=== PATIENT | female | born 1995 | race Caucasian/White ===

== ENCOUNTER 2019-09-29 08:42 | Outpatient (REF) | payer OTHER, SELFPAY ==
[2019-09-29 21:32] LABS: ALT 26 U/L (14-59); AST 26 U/L (15-37); Albumin 3.4 g/dL (3.4-5.0); Alkaline Phosphatase 75 U/L (46-116); Anion Gap 12.7 mmol/L (3-11); BUN 10 mg/dL (7-18); Bilirubin, Total 0.2 mg/dL (0.2-1.0); CO2 23.3 mmol/L (21.0-32.0); CREATININE 0.72 mg/dL (0.55-1.02); Calcium 9.5 mg/dL (8.5-10.1); Calculated LDL 56 mg/dL; Chloride 102 mmol/L (98-107); Cholesterol 160 mg/dL (50-200); Glucose 81 mg/dL (70-100); HDL Cholesterol 54 mg/dL (40-60); Potassium 4.1 mmol/L (3.5-5.1); Sodium 138 mmol/L (136-145); TSH (W/Ref FT4) 2.94 uIU/mL (0.36-3.74); Total Protein 7.4 g/dL (6.4-8.2); Triglyceride 251 mg/dL (30-150)
[2019-10-02 06:35] LABS: Vitamin D 25 Total 33.8 ng/ml (30-100)
== END 2019-09-29 09:02 ==
LOC: NCHCN 08:42
PROVIDERS: PCP Family Medicine; Visit Provider Family Medicine
DX: E66.9 Obesity, unspecified (principal)
CPT/HCPCS: 80053; 80061; 82306; 83036; 84443

== ENCOUNTER 2020-02-15 08:54 | Outpatient (REF) | payer OTHER, SELFPAY ==
[2020-02-15 21:07] LABS: Calculated LDL 64 mg/dL (<100); Cholesterol 173 mg/dL (<200); HDL Cholesterol 51 mg/dL (40-60); Hemoglobin A1C 6.1 % (3.8-5.6); Triglyceride 292 mg/dL (<150)
== END 2020-02-15 09:14 ==
LOC: NCHCN 08:54
PROVIDERS: PCP Family Medicine; Visit Provider Family Medicine
DX: R73.03 Prediabetes (principal); E78.1 Pure hyperglyceridemia
CPT/HCPCS: 80061; 83036

== ENCOUNTER 2020-10-08 14:28 | Outpatient (REF) | payer SELFPAY ==
[2020-10-10 18:46] LABS: SARS-CoV-2 RNA Not Detected (NotDetected); SARS-CoV-2 RNA Source Nasal/Nares
== END 2020-10-08 14:48 ==
LOC: NCHCN 14:28
PROVIDERS: PCP Family Medicine; Visit Provider Nurse Practitioner Family
DX: Z20.828 Contact with and (suspected) exposure to other viral communicable diseases (principal)
CPT/HCPCS: U0003

== ENCOUNTER 2020-11-05 11:18 | Outpatient (REF) | payer SELFPAY ==
[2020-11-08 15:58] LABS: COVID-19 RT-PCR Result NEGATIVE (Negative)
== END 2020-11-05 11:38 ==
LOC: NCHCN 11:18
PROVIDERS: PCP Family Medicine; Visit Provider Nurse Practitioner Family
DX: Z11.59 Encounter for screening for other viral diseases (principal)
CPT/HCPCS: U0003

== ENCOUNTER 2021-12-10 16:33 | Outpatient (REF) | payer OTHER, SELFPAY ==
[2021-12-12 09:23] LABS: COVID-19 RT-PCR UVMMC Result Positive (Negative)
== END 2021-12-10 16:34 | disposition home or self-care (01) ==
LOC: NCHCN 16:33
PROVIDERS: PCP Family Medicine; Visit Provider Nurse Practitioner Family
DX: Z20.822 Contact with and (suspected) exposure to COVID-19 (principal)
CPT/HCPCS: U0003

== ENCOUNTER 2022-02-10 18:46 | Outpatient (REF) | payer OTHER, SELFPAY ==
[2022-02-10 15:12] LABS: Hemoglobin A1C 5.7 % (<5.7)
[2022-02-10 15:28] LABS: ALT 19 U/L (14-59); AST 12 U/L (15-37); Albumin 3.8 g/dL (3.4-5.0); Alkaline Phosphatase 86 U/L (46-116); Anion Gap 10.5 mmol/L (3-11); BUN 14 mg/dL (7-18); Bilirubin, Total 0.2 mg/dL (0.2-1.0); CO2 24.5 mmol/L (21.0-32.0); Calcium 9.4 mg/dL (8.5-10.1); Calculated LDL 89 mg/dL (<100); Chloride 104 mmol/L (98-107); Cholesterol 169 mg/dL (<200); Glucose 87 mg/dL (74-106); HDL Cholesterol 43 mg/dL (40-60); Potassium 3.9 mmol/L (3.5-5.1); Sodium 139 mmol/L (136-145); TSH 2.93 uIU/mL (0.36-3.74); Total Protein 7.5 g/dL (6.4-8.2); Triglyceride 189 mg/dL (<150)
[2022-02-12 00:56] LABS: Vitamin D 25 Total 31.6 ng/mL (30-100)
== END 2022-02-10 18:47 | disposition home or self-care (01) ==
LOC: NCHCN 18:46
PROVIDERS: PCP Family Medicine; Visit Provider Family Medicine
DX: E78.1 Pure hyperglyceridemia (principal); Z00.00 Encounter for general adult medical examination without abnormal findings; E66.9 Obesity, unspecified; R73.03 Prediabetes; F33.42 Major depressive disorder, recurrent, in full remission
CPT/HCPCS: 80053; 80061; 82306; 83036; 84443

== ENCOUNTER 2022-08-27 19:38 | Outpatient (REF) | payer OTHER, SELFPAY ==
[2022-08-27 15:18] LABS: HCG Quant, Pregnancy 116 mIU/mL (1-3)
== END 2022-08-27 19:39 | disposition home or self-care (01) ==
LOC: NCHCN 19:38
PROVIDERS: PCP Family Medicine; Visit Provider Nurse Practitioner Family
DX: O26.899 Other specified pregnancy related conditions, unspecified trimester (principal); R10.32 Left lower quadrant pain
CPT/HCPCS: 84702

== ENCOUNTER 2024-06-01 13:00 | Outpatient (REF) | payer BC, SELFPAY ==
[2024-06-01 15:54] LABS: ALT 30 U/L (14-59); AST 28 U/L (15-37); Alkaline Phosphatase 98 U/L (46-116); Anion Gap 12.7 mmol/L (3-11); BUN 7 mg/dL (7-18); Bilirubin, Total 0.35 mg/dL (0.2-1.0); CO2 22.3 mmol/L (21.0-32.0); CREATININE 0.7 mg/dL (0.55-1.02); Calcium 9.3 mg/dL (8.5-10.1); Chloride 103 mmol/L (98-107); Estimated GFR 119.99 (mL/min/1.73m2); Glucose 80 mg/dL (74-106); Lipase 33 U/L (16-77); Sodium 138 mmol/L (136-145); Total Protein 8.2 g/dL (6.4-8.2)
== END 2024-06-01 13:01 | disposition home or self-care (01) ==
LOC: LBN 13:00
PROVIDERS: PCP Family Medicine; Visit Provider Physician Assistant Medical
DX: R19.7 Diarrhea, unspecified (principal)
CPT/HCPCS: 80053; 83690; 85025

== ENCOUNTER 2024-06-02 15:32 | Outpatient (REF) | payer BC, SELFPAY ==
[2024-06-02 12:35] LABS: C Diff PCR Negative (Negative)
[2024-06-03 00:33] LABS: Campylobacter PCR Negative (Negative); Salmonella PCR Negative (Negative); Shiga Toxin PCR Negative (Negative); Shigella/Enteroinvasive Ecoli Negative (Negative)
== END 2024-06-02 15:33 | disposition home or self-care (01) ==
LOC: LBN 15:32
PROVIDERS: PCP Family Medicine; Visit Provider Physician Assistant Medical
DX: R19.7 Diarrhea, unspecified (principal)
CPT/HCPCS: 87329; 87493; 87505; 87177

== ENCOUNTER 2024-11-10 11:05 | Outpatient (REF) | payer BC, SELFPAY ==
--- NOTE | 2024-11-10 10:15 | SKI_PTH ---
PATIENT: Magaly Herndon LOC: [facility] U#:[id number] AGE/SX: 29/F ROOM: RE11/10/[address]: Marlene Kam : 1995 BED: DIS: 11/10/2024 SPEC #: [id number] RECD: 11/10/24 16:01 STATUS: SANDRA REAnnette #: [id number] JOSE: 11/10/24 10:[address]: Marlene Kam DEPT: Surgical Specimen RECD BY: Sophie Butler ENTERED: 11/10/24 16:01 SP TYPE: IMELDA ELIAS DR: Romina Kate Tissues: 1 - SKIN BIOPSY(SHAVE/PUNCH) Procedures: SKIN LEVEL 4 Comments: [id number]
== END 2024-11-10 11:06 | disposition home or self-care (01) ==
LOC: NCHCN 11:05
PROVIDERS: PCP Family Medicine; Visit Provider Family Medicine
DX: L28.2 Other prurigo (principal)
CPT/HCPCS: 88305

== ENCOUNTER 2025-08-28 14:59 | Emergency (ER) | payer BC, SELFPAY ==
[2025-08-28 15:01] VITALS: BP 131/88; PULSE 130; RESP 18; TEMP 38.1; O2SAT 97
--- NOTE | 2025-08-28 16:15 | DI.CT_ITS ---
Exam(s) CT ABDOMEN PELVIS W EXAM: CT ABDOMEN PELVIS W CLINICAL HISTORY: RUQ tenderness. TECHNIQUE: Imaging Protocol: Axial computed tomography images with coronal and sagittal reformatted images were created and reviewed CONTRAST MATERIAL: Intravenous: Omnipaque 350 Contrast volume:100 ml Oral: no COMPARISON: No exams were available for comparison FINDINGS: ABDOMEN and PELVIS: Lung Bases: No acute findings. Liver: Normal density. No suspicious mass. Gallbladder and biliary tract: No radiodense calculus. No wall thickening or pericholecystic fluid. No biliary dilation. Pancreas: Normal density. No abnormal calcifications or inflammatory process. No evidence of mass. Spleen: Normal. Kidneys: Normal size, contour and axis. No radiodense stones. No obstructive uropathy. No suspicious masses seen. Adrenal glands: No masses seen. Vasculature: Abdominal aorta non-dilated. Soft tissues: Unremarkable. Bladder: Nearly empty no gross wall thickening. No calculi. Bowel: No obstruction. No bowel wall thickening. Appendix normal. Normal quantity of stool. Peritoneal cavity: No ascites. No focal collection. No mesenteric inflammatory response. No free air. Bones: Mild disc space narrowing and endplate osteophytes at L5-S1. Remainder of the spine is unremarkable. Reproductive organs: Unremarkable. Lymph nodes: No pathologically enlarged lymph nodes. IMPRESSION:: No acute abnormality in the abdomen or pelvis. RADIATION DOSE DELIVERED: Total DLP DATA REPOSITORY: All CT scans at this facility are submitted to the National Radiology Data Registry (NRDR) Dose Index Registry (DIR) with the [employer] ([employer]). RADIATION OPTIMIZATION: All CT scans at this facility use at least one of these dose optimization techniques: automated exposure control; mA and/or kV adjustment per patient size (includes targeted exams where dose is matched to clinical indication); or iterative reconstruction.
[2025-08-28 16:45] LABS: Glucose Negative (Negative)
[2025-08-28 16:54] LABS: C & S Indicated? No; RBC 0-2 HPF (0-2); WBC 0-2 HPF (0-5)
[2025-08-28 16:55] LABS: Abs Immature Grans 0.05 10^3/uL (0.0-0.06); HCT 42.4 % (36.0-46.0); HGB 13.5 g/dL (11.2-15.7); Immature Grans % 0.5 %; MCH 26.3 pg (27.0-33.0); MCHC 31.8 % (32.0-36.0); MCV 83 fL (80-95); MPV 9.7 fL (8.0-11.0); Platelet Count 307 10^3/uL (130-400); RBC 5.13 10^6/uL (3.93-5.22); RDW 13.8 % (11.7-14.6); RDW-SD 41.2 fL; WBC 10.79 10^3/uL (4.4-10.8)
[2025-08-28 17:25] LABS: ALT 21 U/L (14-59); AST 14 U/L (15-37); Albumin 4.2 g/dL (3.4-5.0); Alkaline Phosphatase 95 U/L (46-116); Anion Gap 12.8 mmol/L (3-11); BUN 13 mg/dL (7-18); Bilirubin, Total 0.6 mg/dL (0.2-1.0); CO2 23.2 mmol/L (21.0-32.0); Calcium 9.1 mg/dL (8.5-10.1); Chloride 101 mmol/L (98-107); Estimated GFR 87.65 (mL/min/1.73m2); Glucose 107 mg/dL (74-106); Potassium 3.7 mmol/L (3.5-5.1); Sodium 137 mmol/L (136-145); Total Protein 8.7 g/dL (6.4-8.2); Troponin I < 4 ng/L (<or=51)
[2025-08-28] MEDS: ACETAMINOPHEN 1,000 MG/100 ML BAG 400 MG IVPB (17:25)
[2025-08-28] MEDS: Ondansetron 4 MG/2 ML VIAL IVP (17:25)
[2025-08-28] MEDS: Normal Saline 1,000 ML 1000 ML IV (17:25)
[2025-08-28 17:32] LABS: Lipase 32 U/L (<78)
[2025-08-28] MEDS: Normal Saline - Diluent 50 ML VIAL IJ (17:47)
[2025-08-28] MEDS: Normal Saline Flush 10 ML SYR IVP (17:47)
[2025-08-28] MEDS: Omnipaque 350 MG/ML 100 ML BTL IJ (17:48)
--- NOTE | 2025-08-28 18:00 | DI.RAD_ITS ---
Exam(s) XR CHEST 2V PA LATERAL EXAM: XR CHEST 2V PA LATERAL CLINICAL HISTORY: epigastric pain. TECHNIQUE: 2D digital imaging was performed. COMPARISON: No exams were available for comparison FINDINGS: 2 views: Heart size is normal. The mediastinum is not widened. Lungs are clear. No infiltrates nor pleural effusions. IMPRESSION: No acute pulmonary findings. DATA REPOSITORY: RADIATION DOSE DELIVERED:
--- NOTE | 2025-08-28 18:11 | ED.GENADUL_ITS ---
Discharge Plan Disposition Patient Disposition: Home Condition: Stable Discharge Details Clinical Impression: Abdominal pain of unknown cause Primary Care Provider: Romina Kate ED Provider: Hugo Lay Home Meds and New Rx's Prescriptions: Continued bupropion HCl 300 mg tablet extended release 24 hr PO Patient Comments: TAKE 1 TABLET BY MOUTH EVERY DAY Zepbound 5 mg/0.5 mL pen injector SUBCUT Patient Comments: ADMINISTER 5 MG UNDER THE SKIN EVERY WEEK Discharge Instructions Instructions: Abdominal Pain, Adult ED Additional Instructions: You were seen in the emergency department for abdominal pain of unknown cause, he had some nausea and vomiting onset at 330 this morning, your laboratory workup shows no acute concerns, no signs of sepsis at this time though it is early in the course of your illness, please have a low threshold to return, the x-ray of your chest shows no acute pathology and the x-ray of your abdomen shows no acute pathology, there is no evidence of any gallbladder infection or pancreatitis or emergent bowel pathology. You may have possible peptic ulcers or duodenal ulcers, please trial [id number] famotidine/Pepcid AC twice per day, talk to your primary care provider about getting a referral to general surgery for upper endoscopy, please return for any severe acute worsening like intractable nausea or vomiting, significant worsening abdominal pain with persistent fever despite Tylenol and ibuprofen treatment. Referrals: Romina Kate [Primary Care Provider, Medicine] Discharge Data Discharge Date/Time-TO BE ENTERED AT DEPARTURE: 08/28/25 20:56 HPI General Date/Time Provider Initiated Documentation: 08/28/25 15:37 . HPI Narrative: 30 year-old female presents to ED today by POV/ambulating with her spouse with a chief complaint of abdominal pain, sudden onset at 330 this morning with some nausea/vomiting today. Quality described as severe pain in RUQ radiating to R flank, no radiation to black/bloody stools, coffee-ground emesis, shortness of breath, chest pain, endorses fever. Severity is described as severe. Palliating factors include took some Tylenol earlier today. Provoking factors include nothing specific. Events leading up to the incident/Associated Symptoms: Patient denies history of abdominal surgical procedures. Patient not anticoagulated. Related Data Home Medications ?Medication ?Instructions ?Recorded ?Confirmed bupropion HCl 300 mg 24 hr tablet, mg PO 08/28/25 extended release tirzepatide (weight loss) 5 mg/0.5 mg subcut 08/28/25 mL subcutaneous pen injector (Digital Perceptionpbound) Allergies Allergy/AdvReac Type Severity Reaction Status Date / Time amoxicillin Allergy Intermediate Anaphylaxis Verified 08/28/25 15:06 minocycline Allergy Intermediate Anaphylaxis Verified 08/28/25 15:06 General Stated Complaint: Abd Prob CORNELIO: 3 Review of Systems All systems reviewed & are unremarkable except as noted in HPI and below Exam Narrative Exam Narrative: GENERAL APPEARANCE: Well-nourished, febrile, awake and alert, atraumatic, mild acute distress. SKIN: Warm, pink, dry, intact, without rashes/lesions/ulcerations. HEAD: Normocephalic, atraumatic, normal hair distribution for gender/age. EYES: Normal conjunctiva, no exudates on lids/lashes. ENT: Nares patent, no circumoral cyanosis, no facial swelling NECK: Supple, trachea midline, painless cervical ROM. LUNGS/CHEST: Lungs CTA bilaterally- no rhonchi/rales/wheezes diffusely, non- labored respirations, normal A/P diameter, symmetrical expansion, no chest wall deformity HEART (CV/PV): Regular rate and rhythm without murmur, no peripheral edema, no JVD. ABDOMEN: Soft, non-distended, no guarding, RUQ tenderness without Kim's sign, R sided CVA tenderness to percussion, less severe epigastric tenderness. MSK: Normal ROM, no swelling/deformity to bilateral UEs or LEs, moving all extremities without weakness, no cyanosis, spine midline without tenderness, normal curvature. NEURO: Mental Status AAOx4 - alert to person, place, time, events No facial droop, no forehead involvement. Motor: No focal weakness - strength 5/5 in bilateral UEs and LEs, proximal and distal, symmetric. Sensory: sensation intact to light touch globally. Gait normal: patient ambulated without ataxia into ED room. PSYCH: euthymic, cooperative, pleasant, appropriate speech Course Vital Signs Vital signs: Vital Signs Temperature 38.1 C H 08/28/25 15:01 Pulse 130 H 08/28/25 15:01 Respiratory Rate 18 08/28/25 15:01 Blood Pressure 131/88 08/28/25 15:01 Pulse Oximetry 97 08/28/25 15:01 Temperature 38.1 C H 08/28/25 15:01 Temperature Source Tympanic 08/28/25 15:01 Pulse 130 H 08/28/25 15:01 Respiratory Rate 18 08/28/25 15:01 Blood Pressure 131/88 08/28/25 15:01 Pulse Oximetry 97 08/28/25 15:01 Oxygen Delivery Method Room Air 08/28/25 15:01 Oxygen Flow Rate 0 08/28/25 15:01 Pain Level 8 08/28/25 15:01 Lab/Test Results Lab/Test Results: 08/28/25 16:47 Blood Blood Culture - Pending 08/28/25 16:40 Blood Blood Culture - Pending Laboratory Tests Range/Units 08/28/25 08/28/25 16:35 16:40 WBC (4.4-10.8) 10^3/uL 10.79 RBC (3.93-5.22) 10^6/uL 5.13 Hgb (11.2-15.7) g/dL 13.5 Hct (36.0-46.0) % 42.4 MCV (80-95) fL 83 MCH (27.0-33.0) pg 26.3 L MCHC (32.0-36.0) % 31.8 L RDW (11.7-14.6) % 13.8 Plt Count (130-400) 10^3/uL 307 MPV (8.0-11.0) fL 9.7 Immature Gran % % 0.5 Neutrophils % % 90.4 Lymphocytes % % 5.6 Monocytes % % 2.5 Eosinophils % % 0.8 Basophils % % 0.2 Nucleated RBC % (0.0-0.3) % 0.0 Absolute Neutrophils (1.2-6.7) 10^3/uL 9.76 H Absolute Lymphocytes (1.2-3.4) 10^3/uL 0.60 L Absolute Monocytes (0.1-0.8) 10^3/uL 0.27 Absolute Eosinophils (0.0-0.7) 10^3/uL 0.09 Absolute Basophils (0.0-0.2) 10^3/uL 0.02 VBG Lactate (<or=2.0) mmol/L 1.5 Sodium (136-145) mmol/L 137 Potassium (3.5-5.1) mmol/L 3.7 Chloride (98-107) mmol/L 101 Carbon Dioxide (21.0-32.0) mmol/L 23.2 Anion Gap (3-11) mmol/L 12.8 H BUN (7-18) mg/dL 13 Creatinine (0.55-1.02) mg/dL 0.9 Est GFR (CKD-EPI 2020) (mL/min/1.73m2) 87.65 Glucose (74-106) mg/dL 107 H Calcium (8.5-10.1) mg/dL 9.1 Total Bilirubin (0.2-1.0) mg/dL 0.6 AST (15-37) U/L 14 L ALT (14-59) U/L 21 Alkaline Phosphatase (46-116) U/L 95 Troponin I (<or=51) ng/L < 4 Total Protein (6.4-8.2) g/dL 8.7 H Albumin (3.4-5.0) g/dL 4.2 Lipase (<78) U/L 32 Urine Color (Yellow) Yellow Urine Clarity (Clear) Clear Urine pH (5-8) 6.5 Ur Specific [place] (1.005-1.025) 1.025 Urine Protein (Neg-Trace) mg/dL 30 H Urine Ketones (Negative) mg/dL 15 H Urine Blood (Negative) Negative Urine Nitrite (Negative) Negative Urine Bilirubin (Negative) Small H Urine Urobilinogen (Up to 0.2) mg/dL 0.2 Ur Leukocyte Esterase (Negative) Negative Urine RBC (0-2) HPF 0-2 Urine WBC (0-5) HPF 0-2 Ur Epithelial Cells (Negative) HPF Few Urine Crystals (Negative) HPF Negative Urine Bacteria (Negative) HPF Moderate Urine Casts (Negative) LPF 0-2 Hyaline Urine Mucus (Negative) Moderate Ur Culture Indicated? No Urine Glucose (Negative) mg/dL Negative Medical Decision Making This dictation utilizes [id number] dictation software and may contain unedited grammatical errors. 30 year-old female presents to ED today by POV/ambulating with her spouse with a chief complaint of abdominal pain, sudden onset at 330 this morning with some nausea/vomiting today. Quality described as severe pain in RUQ radiating to R flank, no radiation to black/bloody stools, coffee-ground emesis, shortness of breath, chest pain, endorses fever. Severity is described as severe. Palliating factors include took some Tylenol earlier today. Provoking factors include nothing specific. Events leading up to the incident/Associated Symptoms: Patient denies history of abdominal surgical procedures. Patients' medical history: Noncontributory. Family and social history: Eats healthy diet, denies excessive alcohol use. Pertinent exam findings / vital signs include right upper quadrant tenderness without overt Kim sign, some epigastric tenderness, right CVA tenderness to percussion, febrile on arrival with tachycardia that quickly normalized. Differential / pathologies of concern include gastroenteritis, gastritis, biliary colic, renal colic, SBO less likely, pancreatitis. Diagnostic studies of: -CBC, CMP, lactate, troponin, lipase, UA, blood cultures, x-ray chest, CT ABD/pelvis with contrast. - CBC shows no leukocytosis, no anemia - Lactate negative - CMP without actionable abnormality - Troponin negative - Lipase negative - UA shows no signs of infection - Blood cultures pending - CT ABD/pelvis shows no acute pathology - X-ray chest shows no acute pathology Interventions of: -1 g IV Tylenol, 4 mg IVP Zofran, 1 L IVF NS. ED Course/Assessment/Plan: 30-year-old female has a negative workup for her abdominal pain but she was febrile when she arrived, I counseled her on possible gastritis and to take famotidine [id number] twice a day, regular dose of Tylenol and ibuprofen as needed, watchful waiting as she may be early in the course of her illness as it came on suddenly at 330 this morning and may need to be reevaluated, has no surgical abdominal history no evidence of obstruction and no evidence of sepsis on workup, she may have a viral gastroenteritis. Findings not consistent with SBO, sepsis, biliary obstruction, kidney stone, UTI or pyelonephritis, pancreatitis, atypical ACS. Disposition of Abdominal Pain of Unknown Cause. Patient verbalized understanding of the plan and return to ED criteria and engaged in shared decision making. Medical Records Medical records reviewed: Yes I reviewed the patient's medical records. Imaging Data Radiologic Study: Attestation: I personally reviewed and interpreted this imaging study as follows: Imaging: X-Ray Radiologist's impression: Exam: XR Chest Exam date and time: 08/28/2025 6:59 PM Age: 30 years old Clinical indication: Pain; Other: Epigastric TECHNIQUE: Imaging protocol: Radiologic exam of the chest. Views: 2 views. COMPARISON: CT ABDOMEN PELVIS W 08/28/2025 5:47 PM FINDINGS: Lungs: Unremarkable. No consolidation. Pleural spaces: Unremarkable. No pleural effusion. No pneumothorax. Heart/Mediastinum: Unremarkable. No cardiomegaly. Bones/joints: Unremarkable. IMPRESSION: No acute findings. Dictated and Authenticated by: Logan Valencai MD. EXAM: XR CHEST 2V PA LATERAL CLINICAL HISTORY: epigastric pain. TECHNIQUE: 2D digital imaging was performed. COMPARISON: No exams were available for comparison FINDINGS: 2 views: Heart size is normal. The mediastinum is not widened. Lungs are clear. No infiltrates nor pleural effusions. IMPRESSION: No acute pulmonary findings. Radiologic Study #2: Attestation: I personally reviewed and interpreted this imaging study as follows: Imaging: CT Scan Radiologist's impression: EXAM: CT ABDOMEN PELVIS W CLINICAL HISTORY: RUQ tenderness. TECHNIQUE: Imaging Protocol: Axial computed tomography images with coronal and sagittal reformatted images were created and reviewed CONTRAST MATERIAL: Intravenous: Omnipaque 350 Contrast volume:100 ml Oral: no COMPARISON: No exams were available for comparison FINDINGS: ABDOMEN and PELVIS: Lung Bases: No acute findings. Liver: Normal density. No suspicious mass. Gallbladder and biliary tract: No radiodense calculus. No wall thickening or pericholecystic fluid. No biliary dilation. Pancreas: Normal density. No abnormal calcifications or inflammatory process. No evidence of mass. Spleen: Normal. Kidneys: Normal size, contour and axis. No radiodense stones. No obstructive uropathy. No suspicious masses seen. Adrenal glands: No masses seen. Vasculature: Abdominal aorta non-dilated. Soft tissues: Unremarkable. Bladder: Nearly empty no gross wall thickening. No calculi. Bowel: No obstruction. No bowel wall thickening. Appendix normal. Normal anneliese tity of stool. Peritoneal cavity: No ascites. No focal collection. No mesenteric inflammatory response. No free air. Bones: Mild disc space narrowing and endplate osteophytes at L5-S1. Remainder of the spine is unremarkable. Reproductive organs: Unremarkable. Lymph nodes: No pathologically enlarged lymph nodes. IMPRESSION:: No acute abnormality in the abdomen or pelvis. Lab Data Lab results reviewed: Yes I reviewed the patient's lab results. Labs: 08/28/25 16:47 Blood Blood Culture - Pending 08/28/25 16:40 Blood Blood Culture - Pending Laboratory Tests Range/Units 08/28/25 08/28/25 16:35 16:40 WBC (4.4-10.8) 10^3/uL 10.79 RBC (3.93-5.22) 10^6/uL 5.13 Hgb (11.2-15.7) g/dL 13.5 Hct (36.0-46.0) % 42.4 MCV (80-95) fL 83 MCH (27.0-33.0) pg 26.3 L MCHC (32.0-36.0) % 31.8 L RDW (11.7-14.6) % 13.8 Plt Count (130-400) 10^3/uL 307 MPV (8.0-11.0) fL 9.7 Immature Gran % % 0.5 Neutrophils % % 90.4 Lymphocytes % % 5.6 Monocytes % % 2.5 Eosinophils % % 0.8 Basophils % % 0.2 Nucleated RBC % (0.0-0.3) % 0.0 Absolute Neutrophils (1.2-6.7) 10^3/uL 9.76 H Absolute Lymphocytes (1.2-3.4) 10^3/uL 0.60 L Absolute Monocytes (0.1-0.8) 10^3/uL 0.27 Absolute Eosinophils (0.0-0.7) 10^3/uL 0.09 Absolute Basophils (0.0-0.2) 10^3/uL 0.02 VBG Lactate (<or=2.0) mmol/L 1.5 Sodium (136-145) mmol/L 137 Potassium (3.5-5.1) mmol/L 3.7 Chloride (98-107) mmol/L 101 Carbon Dioxide (21.0-32.0) mmol/L 23.2 Anion Gap (3-11) mmol/L 12.8 H BUN (7-18) mg/dL 13 Creatinine (0.55-1.02) mg/dL 0.9 Est GFR (CKD-EPI 2020) (mL/min/1.73m2) 87.65 Glucose (74-106) mg/dL 107 H Calcium (8.5-10.1) mg/dL 9.1 Total Bilirubin (0.2-1.0) mg/dL 0.6 AST (15-37) U/L 14 L ALT (14-59) U/L 21 Alkaline Phosphatase (46-116) U/L 95 Troponin I (<or=51) ng/L < 4 Total Protein (6.4-8.2) g/dL 8.7 H Albumin (3.4-5.0) g/dL 4.2 Lipase (<78) U/L 32 Urine Color (Yellow) Yellow Urine Clarity (Clear) Clear Urine pH (5-8) 6.5 Ur Specific [place] (1.005-1.025) 1.025 Urine Protein (Neg-Trace) mg/dL 30 H Urine Ketones (Negative) mg/dL 15 H Urine Blood (Negative) Negative Urine Nitrite (Negative) Negative Urine Bilirubin (Negative) Small H Urine Urobilinogen (Up to 0.2) mg/dL 0.2 Ur Leukocyte Esterase (Negative) Negative Urine RBC (0-2) HPF 0-2 Urine WBC (0-5) HPF 0-2 Ur Epithelial Cells (Negative) HPF Few Urine Crystals (Negative) HPF Negative Urine Bacteria (Negative) HPF Moderate Urine Casts (Negative) LPF 0-2 Hyaline Urine Mucus (Negative) Moderate Ur Culture Indicated? No Urine Glucose (Negative) mg/dL Negative PFSH All Active Problems (Updated 08/28/25 @ 20:44 by ALEXANDRA Drake) Abdominal pain of unknown cause (Acute) Social History Smoking/Tobacco Use Status: Never Smoking risk assessment performed?: Yes Alcohol Intake: current Alcohol Intake frequency: holidays/special occasions only Drug use: Never Substance use type: does not use Housing: house Do you feel safe at home: Yes Do you feel safe in your relationship?: Yes
--- NOTE | 2025-08-28 20:18 | DI.VRAD_ITS ---
PROCEDURE INFORMATION: Exam: XR Chest Exam date and time: 08/28/2025 6:59 PM Age: 30 years old Clinical indication: Pain; Other: Epigastric TECHNIQUE: Imaging protocol: Radiologic exam of the chest. Views: 2 views. COMPARISON: CT ABDOMEN PELVIS W 08/28/2025 5:47 PM FINDINGS: Lungs: Unremarkable. No consolidation. Pleural spaces: Unremarkable. No pleural effusion. No pneumothorax. Heart/Mediastinum: Unremarkable. No cardiomegaly. Bones/joints: Unremarkable. IMPRESSION: No acute findings. Dictated and Authenticated by: Logan Valencia MD. Orderin Alireza Arias MD
[2025-08-28 20:41] VITALS: BP 104/58; PULSE 95; RESP 18; TEMP 36.4; O2SAT 98
== END 2025-08-28 20:56 | disposition home or self-care (01) ==
PROVIDERS: Emergency Provider Physician Assistant; PCP Family Medicine
DX: R10.11 Right upper quadrant pain (principal)
CPT/HCPCS: 99285; 99284; 36415; 81025; 96375; 80053; 83690; 87040; 96365; 71046; 74177; 81003; 81015; 83605; 84484; 85025; J0131; J2405; J3490